=== PATIENT | male | born 2000 | race Caucasian/White ===

== ENCOUNTER 2022-05-22 12:04 | Outpatient (CLI) | payer BC | END 2022-05-22 23:59 | disposition home or self-care (01) | LOC: RAD 12:04 | PROVIDERS: ATTEND Physician Assistant | DX: S39.012A Strain of muscle, fascia and tendon of lower back, initial encounter (principal); X58.XXXA Exposure to other specified factors, initial encounter; Y93.89 Activity, other specified; Y92.89 Other specified places as the place of occurrence of the external cause; Y99.8 Other external cause status | CPT/HCPCS: 72146; 72148 ==